=== PATIENT | male | born 1985 | race Caucasian/White ===

== ENCOUNTER 2022-11-04 17:22 | Emergency (ER) | payer SELFPAY ==
[2022-11-04 17:32] VITALS: BP 130/88; PULSE 75; RESP 18; TEMP 98.1; BMI 26.3
[2022-11-04] MEDS ORDERED: FLUORESCEIN NA 1 EA STRIP ONE (18:08)
[2022-11-04] MEDS ORDERED: TETRACAINE 0.5% OPHTH SOLN 2 ML BOTTLE ONE (18:08)
== END 2022-11-04 19:15 | disposition home or self-care (01) ==
LOC: JERFT 17:22
DX: N34.1 Nonspecific urethritis (principal); H10.9 Unspecified conjunctivitis
CPT/HCPCS: 36415; 87086; 87110; 87491; 87591; 99283-25